=== PATIENT | male | born 1960 | race Caucasian/White ===

== ENCOUNTER 2022-03-04 00:08 | Inpatient (IN) ==
[2022-03-04] MEDS ORDERED: 0.9 % Sodium Chloride 1,000 ML IVC ONE (00:38)
[2022-03-04 01:00] LABS: Hemoglobin 11.1 g/dL (12.9-16.9); Mean Corpuscular Hemoglobin 32.4 pg (28.0-33.3); Red Blood Count 3.43 M/mcL (4.19-5.50); White Blood Count 5.1 K/mcL (4.3-11.1)
[2022-03-04 01:02] LABS: Basophils % 0.6 %; Hematocrit 33.2 % (37.5-50.1); Immature Granulocytes % 0.6 % (0-4); Immature Platelets 9.5 % (1.1-6.1); Lymphocytes # 0.6 K/mcL (0.6-4.6); Lymphocytes % 10.9 %; Mean Corpuscular HGB Conc 33.4 g/dL (31.6-35.5); Mean Corpuscular Volume 96.8 fL (83.0-100.0); Monocytes # 0.5 K/mcL (0.0-1.3); Monocytes % 9.3 %; Platelet Count 92 K/mcL (140-400); Red Cell Distribution Width 15.3 % (11.5-14.5); Segmented Neutrophils % 78.6 %
[2022-03-04 01:07] LABS: Albumin 3.9 g/dL (3.5-5.7); Albumin/Globulin Ratio 1.8 (1.1-2.2); Bilirubin,Total 0.7 mg/dL (0.3-1.0); Globulin 2.2 g/dL (2.4-3.5); Magnesium 1.2 mg/dL (1.6-2.6); Potassium 3.9 mEq/L (3.5-5.1); Total Protein 6.1 g/dL (6.4-8.9)
[2022-03-04 01:52] LABS: Troponin I 0.04 ng/mL (< 0.04)
[2022-03-04 02:35] LABS: Adenovirus Not Detected (Not Detect); Bordetella Pertussis Not Detected (Not Detect); Chlamydophila pneumoniae Not Detected (Not Detect); Coronavirus 229E Not Detected (Not Detect); Coronavirus HKU1 Not Detected (Not Detect); Coronavirus NL63 Not Detected (Not Detect); Coronavirus OC43 Not Detected (Not Detect); Human Metapneumovirus Not Detected (Not Detect); Human Rhinovirus/Enterovirus Not Detected (Not Detect); Influenza A Subtype 2009 H1 Not Detected (Not Detect); Influenza B Not Detected (Not Detect); Mycoplasma pneumoniae Not Detected (Not Detect); Parainfluenza Virus 1 Not Detected (Not Detect); Parainfluenza Virus 2 Not Detected (Not Detect); Parainfluenza Virus 3 Not Detected (Not Detect); Parainfluenza Virus 4 Not Detected (Not Detect); Respiratory Syncytial Virus Not Detected (Not Detect); SARS-CoV-2 Not Detected (Not Detect)
[2022-03-04] MEDS ORDERED: Azithromycin 500 MG in 0.9 % Sodium Chloride 250 ML IVPB ONE (03:41)
[2022-03-04 04:16] LABS: Bilirubin,Urine Negative (Negative); Blood,Urine Small (Negative); Clarity,Urine Clear (Clear); Color,Urine Light-Yellow (Yellow); Glucose,Urine (UA) 100 mg/dL (Normal); Ketones,Urine Negative (Negative); Leukocyte Esterase,Urine Negative (Negative); Nitrite,Urine Negative (Negative); Protein,Urine 70 mg/dL (Neg-Trace); Specific Gravity,Urine 1.015 (1.010-1.025); Urobilinogen,Urine Normal (Normal); WBC,Urine 0-3 per hpf (0-3)
[2022-03-04] MEDS ORDERED: Cefepime HCl 2,000 MG in 0.9 % Sodium Chloride 10 ML IVP ONE (05:15)
[2022-03-04] MEDS ORDERED: D5 IVPB ONE (05:16)
[2022-03-04] MEDS ORDERED: ACYCLOVIR IVPB ONE (05:16)
[2022-03-04] MEDS ORDERED: WATER IVPB ONE (05:16)
[2022-03-04 06:11] LABS: Red Blood Cell,CSF 6000 RBC/mcL
[2022-03-04] MEDS ORDERED: Ondansetron 4 MG/2 ML VIAL IVP PRN (06:11)
[2022-03-04] MEDS ORDERED: Acetaminophen 325 MG TABLET PO PRN (06:11)
[2022-03-04] MEDS ORDERED: Melatonin 3 MG TABLET PO PRN (06:11)
[2022-03-04] MEDS ORDERED: Naloxone 0.4 MG/ML INJ IVP PRN (06:11)
[2022-03-04] MEDS ORDERED: D5% in Water 1,000 ML IVC PRN (06:13)
[2022-03-04] MEDS ORDERED: Dextrose Gel 15 GM/37.5 ML TUBE PO PRN ×2 (06:13)
[2022-03-04] MEDS ORDERED: *HR* Dextrose 50 % in Water (Syg) 50 ML SYRINGE IVP PRN (06:13)
[2022-03-04] MEDS ORDERED: Thiamine (B-1) 100 MG in 0.9 % Sodium Chloride 50 ML IVPB STA (06:38)
[2022-03-04 06:44] LABS: Appearance,CSF Bloody (Clear)
[2022-03-04] MEDS ORDERED: Perflutren Lipid Microsphere 1.3 ML in 0.9 % Sodium Chloride 8.7 ML IVP PRN (06:53)
[2022-03-04 07:01] LABS: Hemoglobin 9.8 g/dL (12.9-16.9); Red Cell Distribution Width 15.6 % (11.5-14.5)
[2022-03-04 07:03] LABS: Basophils % 0.8 %; Immature Granulocytes % 0.4 % (0-4); Immature Platelets 9.2 % (1.1-6.1); Lymphocytes # 0.6 K/mcL (0.6-4.6); Mean Corpuscular HGB Conc 32.7 g/dL (31.6-35.5); Mean Corpuscular Hemoglobin 31.6 pg (28.0-33.3); Mean Corpuscular Volume 96.8 fL (83.0-100.0); Mean Platelet Volume 11.8 fL (9.4-12.4); Monocytes # 0.5 K/mcL (0.0-1.3); Monocytes % 9.8 %; Neutrophils # 3.9 K/mcL (1.6-8.9)
[2022-03-04 07:07] LABS: Platelet Count 90 K/mcL (140-400)
[2022-03-04 07:11] LABS: INR 1.6; Prothrombin Time 17.4 Seconds (9.4-12.1)
[2022-03-04 07:11] LABS: VBG HCO3 20 mEq/L (21-27); VBG PCO2 37 mmHg (41-51); VBG PH 7.35 pH Units (7.32-7.42); VBG PO2 159 mmHg (25-50)
[2022-03-04 07:13] LABS: Activated Partial Thrombo Time 34.2 Seconds (26.0-36.0)
[2022-03-04 07:22] LABS: Acetaminophen < 10 mcg/mL (10-20); Alanine Aminotransferase 9 Units/L (7-52); Albumin 3.5 g/dL (3.5-5.7); Albumin/Globulin Ratio 1.8 (1.1-2.2); Alkaline Phosphatase 53 Units/L (34-104); Aspartate Amino Transferase 15 Units/L (13-39); BUN/Creatinine Ratio 13 (6-26); Bilirubin,Total 0.7 mg/dL (0.3-1.0); Blood Urea Nitrogen 28 mg/dL (8-23); Calcium 8.6 mg/dL (8.6-10.3); Carbon Dioxide 19 mEq/L (23-29); Chloride 112 mEq/L (98-107); Ethanol < 10 mg/dL (Less than 10); Globulin 1.9 g/dL (2.4-3.5); Glucose 116 mg/dL (70-105); Magnesium 1.7 mg/dL (1.6-2.6); Osmolality,Calculated 292 (280-300); Phosphorous 2.1 mg/dL (2.7-4.5); Potassium 3.9 mEq/L (3.5-5.1); Salicylate < 2.5 mg/dL (15.0-30.0); Sodium 138 mEq/L (136-145); Thyroid Stimulating Hormone 0.674 mcIU/mL (0.340-5.600); Total Protein 5.4 g/dL (6.4-8.9); Troponin I 0.05 ng/mL (< 0.04); eGFR For African Americans 39 (> 60); eGFR For Non-African Americans 32 (> 60)
[2022-03-04] MEDS: 0.9 % Sodium Chloride 1,000 ML IVC SCH ×2 (07:46→09:38)
[2022-03-04] MEDS: Ipratropium/Albuterol Neb 3 ML IH SCH ×5 (07:52→23:42)
[2022-03-04 07:57] LABS: Glucose,CSF 74 mg/dL (40-70); Total Protein,CSF 141 mg/dL (15-45)
[2022-03-04] MEDS: carvediloL 6.25 MG TABLET PO SCH ×2 (09:41→17:25)
[2022-03-04] MEDS: Chlorhexidine Rinse 15 ML MOUTHWASH MM SCH ×2 (09:41→21:31)
[2022-03-04] MEDS: predniSONE 20 MG TABLET PO SCH (09:41)
[2022-03-04] MEDS: Multivit/Ca/Min/Fe/FA 1 TAB TABLET PO SCH (09:42)
[2022-03-04] MEDS: Nicotine 21 MG PATCH.TD24 TD SCH (09:42)
[2022-03-04] MEDS: Aspirin 81 MG TAB.CHEW PO SCH (09:42)
[2022-03-04 10:21] LABS: Chol/HDL Ratio 3.3 (0-4.9)
[2022-03-04 11:27] LABS: Estimated Average Glucose 117 mg/dl; Hemoglobin A1C 5.7 %
[2022-03-04] MEDS: Budesonide/Formoterol 160/4.5 1 PUFF INH IH SCH ×2 (11:31→19:42)
[2022-03-04 11:57] LABS: Folate > 22.3 ng/mL (3.0-16.0); Vitamin B12 469 pg/mL (250-1100)
[2022-03-04] MEDS: Insulin LISPRO 300 UNITS/3 ML VIAL SUBQ SCH ×2 (12:40→17:25)
[2022-03-04] MEDS ORDERED: *HR* Heparin 5,000 UNIT/ML VIAL SQ SCH (14:00)
[2022-03-04 16:22] LABS: C-Reactive Protein 81 mg/L (Less than 10)
[2022-03-04] MEDS: Renal Vitamin 1 CAP CAPSULE PO SCH (17:25)
[2022-03-04] MEDS ORDERED: *HR* Warfarin 3 MG TABLET PO ONE (18:00)
[2022-03-04] MEDS ORDERED: Warfarin perPT PO PRN (18:00)
[2022-03-04] MEDS: Insulin DETEMIR 100 UNIT/ML X5UNITS SUBQ SCH (21:42)
[2022-03-05] MEDS: Ipratropium/Albuterol Neb 3 ML IH SCH ×6 (03:43→23:46)
[2022-03-05 07:39] LABS: INR 1.4; Prothrombin Time 15.1 Seconds (9.4-12.1)
[2022-03-05] MEDS: Budesonide/Formoterol 160/4.5 1 PUFF INH IH SCH ×2 (07:48→20:03)
[2022-03-05 08:42] LABS: Basophils % 0.5 %; Immature Granulocytes % 0.5 % (0-4); Mean Corpuscular Volume 96.6 fL (83.0-100.0)
[2022-03-05 08:44] LABS: Hematocrit 28.6 % (37.5-50.1); Hemoglobin 9.4 g/dL (12.9-16.9); Immature Platelets 10.4 % (1.1-6.1); Lymphocytes # 0.5 K/mcL (0.6-4.6); Lymphocytes % 11.1 %; Mean Corpuscular HGB Conc 32.9 g/dL (31.6-35.5); Mean Corpuscular Hemoglobin 31.8 pg (28.0-33.3); Mean Platelet Volume 11.7 fL (9.4-12.4); Monocytes # 0.5 K/mcL (0.0-1.3); Red Blood Count 2.96 M/mcL (4.19-5.50); Red Cell Distribution Width 15.9 % (11.5-14.5); Segmented Neutrophils % 75.9 %; White Blood Count 4.3 K/mcL (4.3-11.1)
[2022-03-05 08:46] LABS: Neutrophils # 3.3 K/mcL (1.6-8.9); Platelet Count 86 K/mcL (140-400)
[2022-03-05 09:01] LABS: Calcium 9.3 mg/dL (8.6-10.3); Potassium 4.1 mEq/L (3.5-5.1)
[2022-03-05] MEDS: calcitrioL 0.25 MCG CAPSULE PO SCH (09:06)
[2022-03-05] MEDS: predniSONE 20 MG TABLET PO SCH (09:06)
[2022-03-05] MEDS: Multivit/Ca/Min/Fe/FA 1 TAB TABLET PO SCH (09:06)
[2022-03-05] MEDS: lisinopriL 10 MG TABLET PO SCH (09:06)
[2022-03-05] MEDS: Aspirin 81 MG TAB.CHEW PO SCH (09:06)
[2022-03-05] MEDS: Chlorhexidine Rinse 15 ML MOUTHWASH MM SCH ×2 (09:06→19:54)
[2022-03-05] MEDS: carvediloL 6.25 MG TABLET PO SCH ×2 (09:06→18:03)
[2022-03-05] MEDS: Nicotine 21 MG PATCH.TD24 TD SCH (09:07)
[2022-03-05] MEDS: Azithromycin 500 MG in 0.9 % Sodium Chloride 250 ML IVPB SCH (09:07)
[2022-03-05] MEDS: cefTRIAXone 1,000 MG in 0.9 % Sodium Chloride Mini Bag 100 ML IVPB SCH (09:08)
[2022-03-05] MEDS: Insulin LISPRO 300 UNITS/3 ML VIAL SUBQ SCH ×3 (09:08→18:03)
[2022-03-05] MEDS: Renal Vitamin 1 CAP CAPSULE PO SCH (12:01)
[2022-03-05 13:46] LABS: Amphetamine Screen,Urine Negative ng/mL (Cutoff=1000); Barbiturate Screen,Urine Negative ng/mL (Cutoff=200); Benzodiazepines Screen,Urine Negative ng/mL (Cutoff=200); Cannabinoid Screen,Urine Negative ng/mL (Cutoff = 50); Cocaine Screen,Urine Negative ng/mL (Cutoff= 300); Opiate Screen,Urine Negative ng/mL (Cutoff=300); Phencyclidine Screen,Urine Negative ng/mL (Cutoff=25)
[2022-03-05] MEDS ORDERED: *HR* Warfarin 4 MG TABLET PO ONE (18:00)
[2022-03-05] MEDS: Insulin DETEMIR 100 UNIT/ML X5UNITS SUBQ SCH (19:54)
[2022-03-06 03:00] LABS: Basophils % 0.2 %; Hemoglobin 9.4 g/dL (12.9-16.9); Mean Corpuscular Volume 98.3 fL (83.0-100.0)
[2022-03-06 03:02] LABS: Immature Granulocytes % 0.6 % (0-4); Immature Platelets 11.5 % (1.1-6.1); Lymphocytes # 0.4 K/mcL (0.6-4.6); Mean Corpuscular HGB Conc 32.4 g/dL (31.6-35.5); Mean Corpuscular Hemoglobin 31.9 pg (28.0-33.3); Mean Platelet Volume 11.9 fL (9.4-12.4); Monocytes # 0.3 K/mcL (0.0-1.3); Monocytes % 6.7 %; Neutrophils # 3.9 K/mcL (1.6-8.9); Red Blood Count 2.95 M/mcL (4.19-5.50); Red Cell Distribution Width 15.8 % (11.5-14.5); Segmented Neutrophils % 83.5 %; White Blood Count 4.7 K/mcL (4.3-11.1)
[2022-03-06 03:04] LABS: Platelet Count 94 K/mcL (140-400)
[2022-03-06 03:10] LABS: INR 1.5; Prothrombin Time 16.4 Seconds (9.4-12.1)
[2022-03-06 03:19] LABS: Calcium 9.5 mg/dL (8.6-10.3); Potassium 4.3 mEq/L (3.5-5.1)
[2022-03-06] MEDS: Ipratropium/Albuterol Neb 3 ML IH SCH ×3 (03:29→11:25)
[2022-03-06] MEDS: Budesonide/Formoterol 160/4.5 1 PUFF INH IH SCH (07:44)
[2022-03-06 07:50] VITALS: BP 135/77; PULSE 79; TEMP 97.2; O2SAT 100
[2022-03-06] MEDS: predniSONE 20 MG TABLET PO SCH (08:43)
[2022-03-06] MEDS: calcitrioL 0.25 MCG CAPSULE PO SCH (08:43)
[2022-03-06] MEDS: Chlorhexidine Rinse 15 ML MOUTHWASH MM SCH (08:43)
[2022-03-06] MEDS: lisinopriL 10 MG TABLET PO SCH (08:43)
[2022-03-06] MEDS: Nicotine 21 MG PATCH.TD24 TD SCH (08:43)
[2022-03-06] MEDS: carvediloL 6.25 MG TABLET PO SCH (08:43)
[2022-03-06] MEDS: Aspirin 81 MG TAB.CHEW PO SCH (08:43)
[2022-03-06] MEDS: Multivit/Ca/Min/Fe/FA 1 TAB TABLET PO SCH (08:43)
[2022-03-06] MEDS: Azithromycin 500 MG in 0.9 % Sodium Chloride 250 ML IVPB SCH (08:44)
[2022-03-06] MEDS: cefTRIAXone 1,000 MG in 0.9 % Sodium Chloride Mini Bag 100 ML IVPB SCH (08:44)
[2022-03-06] MEDS: Insulin LISPRO 300 UNITS/3 ML VIAL SUBQ SCH (08:44)
[2022-03-06] MEDS: Renal Vitamin 1 CAP CAPSULE PO SCH (08:46)
[2022-03-07 08:19] LABS: Enterovirus RNA Qual (PCR) NOT DETECTED
[2022-03-08 11:56] LABS: HSV 2 Glycoprotein G IgG CSF 0.01 IV (<=0.89)
[2022-03-10 12:41] LABS: HSV 1 Glycoprotein G IgG CSF 2.88 IV (<=0.89)
== END 2022-03-06 12:25 | disposition home or self-care (01) | DRG 193 ==
LOC: 3ANU 00:08 → EMEROOARM 00:08 → SUATTDRO 06:22 → 3ANU 08:30
PROVIDERS: ADMIT Internal Medicine; ATTEND Family Medicine